=== PATIENT | male | born 1985 ===

== ENCOUNTER 2016-08-28 19:41 | Emergency (ER) | payer OTHER ==
[2016-08-28 19:44] VITALS: BMI 26.1
[2016-08-28 19:46] VITALS: BP 129/86; PULSE 80; RESP 19; TEMP 98.6; O2SAT 99
[2016-08-28] MEDS ORDERED: Amoxicillin-Clav 875-125 mg Tab PO STA (19:57)
[2016-08-28] MEDS ORDERED: TDAP Vaccine 0.5 mL Syr IM ONE (19:58)
--- NOTE | 2016-08-28 20:01 | ED PDOC ---
Arrival/HPI - General Chief Complaint: Bite Time Seen by Provider: 08/28/16 19:57 Historian: Patient - History of Present Illness Narrative History of Present Illness (Text): 08/28/16 19:58 31 y/o male, no significant pmh, nkda, last tetanus doesn't remember, c/o lt. hunt dog bite wound x 2 hours. Pt. stated that the dog bite him while he try to prevent the dog to come in, dog has all the immunization up to date as per patient including rabies, no numbness or tingling, no limping, bleeding resolved , no headache or night sweat, no other medical or psychological complaints. Past Medical History - Provider Review Nursing Documentation Reviewed: Yes - Infectious Disease Hx of Infectious Diseases: None - Past Medical History Past Medical History: No Previous - Psychiatric Hx Depression: No Hx Emotional Abuse: No Hx Physical Abuse: No Hx Substance Use: No - Past Surgical History Past Surgical History: No Previous - Anesthesia Hx Anesthesia: No - Suicidal Assessment Feels Threatened In Home Enviroment: No Family/Social History - Physician Review Nursing Documentation Reviewed: Yes Family/Social History: Unknown Family HX Smoking Status: Never Smoked Hx Alcohol Use: Yes Hx Substance Use: No Hx Substance Use Treatment: No Allergies/Home Meds Allergies/Adverse Reactions: Allergies No Known Allergies Allergy (Verified 08/28/16 19:44) Review of Systems - Review of Systems Constitutional: absent: Fatigue, Fevers Eyes: absent: Vision Changes ENT: absent: Hearing Changes Respiratory: absent: Cough, Sputum Cardiovascular: absent: Chest Pain Gastrointestinal: absent: Abdominal Pain, Diarrhea, Nausea, Vomiting Skin: Other (bite wound). absent: Rash, Pruritis, Skin Lesions, Laceration, Abscess, Ulcer, Cellulitis Neurological: absent: Headache, Dizziness, Focal Weakness, Gait Changes, Speech Changes, Facial Droop, Disequilibrium, Seizure Physical Exam Vital Signs Reviewed: Yes Vital Signs Temp Pulse Resp BP Pulse Ox 08/28/16 19:46 98.6 F 80 19 129/86 99 Temperature: Afebrile Blood Pressure: Normal Pulse: Regular Respiratory Rate: Normal Appearance: Positive for: Well-Appearing, Non-Toxic, Comfortable Pain Distress: Moderate Mental Status: Positive for: Alert and Oriented X 3 - Systems Exam Head: Present: Atraumatic, Normocephalic Pupils: Present: PERRL Extroacular Muscles: Present: EOMI Conjunctiva: Present: Normal Mouth: Present: Moist Mucous Membranes Neck: Present: Normal Range of Motion Respiratory/Chest: Present: Clear to Auscultation, Good Air Exchange. No: Respiratory Distress, Accessory Muscle Use Cardiovascular: Present: Regular Rate and Rhythm, Normal S1, S2. No: Murmurs Abdomen: Present: Normal Bowel Sounds. No: Tenderness, Distention, Peritoneal Signs Back: Present: Normal Inspection Upper Extremity: Present: Normal Inspection. No: Cyanosis, Edema Lower Extremity: Present: Normal Inspection, Other (Lt. tibia/fibula: visible approx. 1cm superficial bite wound with no active bleeding on the anterior proximal 1/3 hunt, no bony tenderness, FROM without limitation, sensation intact , motor 5/5, +DPPT pulses, capillary refill< 2 seconds, neurovascular intact. ) . No: Edema Neurological: Present: GCS=15, CN II-XII Intact, Speech Normal Skin: Present: Warm, Dry, Normal Color. No: Rashes Psychiatric: Present: Alert, Oriented x 3, Normal Insight, Normal Concentration Medical Decision Making ED Course and Treatment: 08/28/16 20:03 -augmentin, motrin -xray -wound irrigate with normal saline 500cc, clean with betadine, bacitracin and gauze dressing. -I advised the ENGINEERING DESIGN SUPERVISOR Baylee to fill out the dog bite form. 08/28/16 21:09 -xray show no fracture or dislocation but there is small round foreign body on the distal 1/3 where the bite wound is on the proximal 1/3 region which are not correlated, I showed the patient and advised outpatient follow up with his own pmd. -Discharge home with augmentin, motrin, bacitracin ointment, crutches, weight bearing as tolerated, ice compression, follow up with your own pmd within 2 days , return to the ER for any new or worsening signs or symptoms. - RAD Interpretation Radiology Orders: 08/28/16 19:57 TIBIA FIBULA LEFT [RAD] Stat soft tissue injury. no evidence of foreign body Indigo Vat Tender Cloth: Radiologist - Medication Orders Current Medication Orders: Discontinued Medications Amoxicillin/Clavulanate Potassium (Augmentin 875 Mg-125 Mg Tab) 1 tab PO STAT STA PRN Reason: Protocol Stop: 08/28/16 19:58 Last Admin: 08/28/16 20:14 Dose: 1 tab Ibuprofen (Motrin Tab) 600 mg PO STAT STA Stop: 08/28/16 19:58 Last Admin: 08/28/16 20:14 Dose: 600 mg Tetanus/Reduced Diphtheria/Acell Pertussis (Boostrix Vaccine Inj) 0.5 ml IM .ONCE ONE Stop: 08/28/16 19:59 Last Admin: 08/28/16 20:14 Dose: 0.5 ml - PA / TOOLROOM HELPER / Resident Statement MD/DO has reviewed & agrees with the documentation as recorded. Disposition/Present on Arrival - Present on Arrival Any Indicators Present on Arrival: No History of DVT/PE: No History of Uncontrolled Diabetes: No Urinary Catheter: No History of Decub. Ulcer: No History Surgical Site Infection Following: None - Disposition Have Diagnosis and Disposition been Completed?: Yes Diagnosis: Dog bite of lower leg Disposition: HOME/ ROUTINE Disposition Time: 20:05 Patient Plan: Discharge Condition: GOOD Additional Instructions: Discharge home with augmentin, motrin, bacitracin ointment, crutches, weight bearing as tolerated, ice compression, follow up with your own pmd within 2 days , return to the ER for any new or worsening signs or symptoms. Prescriptions: Amoxicillin/Clavulanate [Augmentin 875 MG-125 MG] 1 tab PO BID #20 tab Bacitracin Ointment [Bacitracin] 1 appful TOP BID #15 g Ibuprofen [Motrin] 600 mg PO QID PRN #24 tab PRN Reason: Other Referrals: PCP,NO [Primary Care Provider] - Follow up with primary Kevin Hardwick MD [Staff Provider] - Follow up with primary [facility] [place] - Follow up with primary Forms: WORK NOTE
--- NOTE | 2016-08-29 08:18 | RAD ---
PROCEDURE: Radiographs of the left tibia and fibula. HISTORY: lt. hunt dog bite COMPARISON: None available. TECHNIQUE: Frontal and lateral views obtained. FINDINGS: BONES: No fracture or destructive lesion. JOINT SPACES: Unremarkable. OTHER FINDINGS: There is soft tissue swelling. There is no foreign body IMPRESSION: Soft tissue swelling. No evidence of foreign body
== END 2016-08-28 21:28 | disposition home or self-care (01) ==
LOC: ED 19:41
DX: S80.872A Other superficial bite, left lower leg, initial encounter (principal); W54.0XXA Bitten by dog, initial encounter; Z23 Encounter for immunization

== ENCOUNTER 2016-11-14 14:12 | Emergency (ER) | payer OTHER ==
[2016-11-14 15:09] VITALS: BMI 26.4
[2016-11-14 15:13] VITALS: TEMP 99.4
--- NOTE | 2016-11-14 17:12 | ED PDOC ---
Arrival/HPI - General Chief Complaint: Abnormal Skin Integrity Time Seen by Provider: 11/14/16 15:43 Historian: Patient, [employer] (Adela Johnson) - History of Present Illness Narrative History of Present Illness (Text): 11/14/16 16:40 Tobin Bower is a 31 year old male, who presents to the emergency department complaining of a lesion on his penis. He stated that last week while being in the pool he developed a burning sensation and it continued after he showered. He noticed then a lesion on his penis. Patient engages in homosexual anal intercourse. Patient denies having chest pain, shortness of breath, headache, fever, chills, cough, nausea, vomiting, diarrhea, abdominal pain, dizziness or other complaints. Time/Duration: 24 hours Symptom Onset: Sudden Symptom Course: Unchanged Quality: Burning Activities at Onset: Light Modifying Factors (Text): None Associated Symptoms (Text): None Past Medical History - Provider Review Nursing Documentation Reviewed: Yes - Infectious Disease Hx of Infectious Diseases: None - Past Medical History Past Medical History: No Previous - Psychiatric Hx Substance Use: No - Past Surgical History Past Surgical History: No Previous - Anesthesia Hx Anesthesia: No - Suicidal Assessment Feels Threatened In Home Enviroment: No Family/Social History - Physician Review Nursing Documentation Reviewed: Yes Family/Social History: Unknown Family HX Smoking Status: Never Smoked Hx Alcohol Use: Yes Frequency of alcohol use: Socially Hx Substance Use: No Hx Substance Use Treatment: No Allergies/Home Meds Allergies/Adverse Reactions: Allergies No Known Allergies Allergy (Verified 08/28/16 19:44) Review of Systems - Review of Systems Constitutional: absent: Fevers Eyes: absent: Vision Changes Respiratory: absent: SOB, Cough Cardiovascular: absent: Chest Pain Gastrointestinal: absent: Abdominal Pain, Diarrhea, Nausea, Vomiting Genitourinary Male: Other (burning sensation in penis). absent: Dysuria Physical Exam Vital Signs Reviewed: Yes Vital Signs Temp Pulse Resp BP Pulse Ox 11/14/16 17:27 74 18 119/74 98 11/14/16 16:06 79 18 117/75 97 11/14/16 14:12 99.4 F 84 16 115/77 97 Temperature: Afebrile Blood Pressure: Normal Pulse: Regular Respiratory Rate: Normal Appearance: Positive for: Well-Appearing, Non-Toxic, Comfortable Pain Distress: None Mental Status: Positive for: Alert and Oriented X 3 - Systems Exam Head: Present: Atraumatic, Normocephalic Neck: Present: Normal Range of Motion Abdomen: Present: Normal Bowel Sounds. No: Tenderness, Distention, Peritoneal Signs Genitourinary Male: Present: Lesions (There is an isolated ulcerated lesion near the prepuce on the penis) Upper Extremity: Present: Normal Inspection. No: Cyanosis, Edema Lower Extremity: Present: Normal Inspection. No: Edema Neurological: Present: GCS=15, CN II-XII Intact, Speech Normal Skin: Present: Warm, Dry, Normal Color. No: Rashes Psychiatric: Present: Alert, Oriented x 3, Normal Insight, Normal Concentration Medical Decision Making ED Course and Treatment: 11/14/16 16:40 Impression: 31 year old male with lesion on penis. Differential Diagnosis included but are not limited to: syphilis vs. herpes Plan: -- Labs -- Famvir -- Reassess and disposition 11/14/16 20:36 Patient with isolated painless penile lesion with homosexual sex as risk factor for HIV/syphilis. Rapis HIV is nonreactive in the ED. HSV labs and RPR For syphilis sent. Patient told to call back the ED in a few days for results. Will give script for famvir and have him f/u in the medical clinic. - Lab Interpretations Lab Results: Lab Results 11/14/16 18:50: HIV-1 Ab Rapid Screen Non reactive I have reviewed the lab results: Yes - Medication Orders Current Medication Orders: Discontinued Medications Famciclovir (Famvir) 250 mg PO ONCE STA Stop: 11/14/16 16:41 Last Admin: 11/14/16 17:21 Dose: 250 mg - PA / SOFTWARE DEVELOPER CONSULTANT / Resident Statement / has reviewed & agrees with the documentation as recorded. / has examined the patient and agrees with the treatment plan. - Scribe Statement The provider has reviewed the documentation as recorded by the Scribe 11/14/2016 Adela Johnson Provider Scribe Attestation: All medical record entries made by the Scribe were at my direction and personally dictated by me. I have reviewed the chart and agree that the record accurately reflects my personal performance of the history, physical exam, medical decision making, and the department course for this patient. I have also personally directed, reviewed, and agree with the discharge instructions and disposition. Disposition/Present on Arrival - Present on Arrival Any Indicators Present on Arrival: No History of DVT/PE: No History of Uncontrolled Diabetes: No Urinary Catheter: No History of Decub. Ulcer: No History Surgical Site Infection Following: None - Disposition Have Diagnosis and Disposition been Completed?: Yes Diagnosis: Penile lesion Disposition: HOME/ ROUTINE Disposition Time: 20:35 Patient Plan: Discharge Condition: GOOD Additional Instructions: Apply bacitracin twice daily to lesion. Take the medication as prescribed. Follow up in the medical clinic. You may call back the emergency department at [phone] in several days for results. Return to the emergency department if any new concerning symptoms. Prescriptions: Famciclovir [Famvir] 1 tab PO TID #21 tab Referrals: [facility] [place]Outside] - Follow up with primary
[2016-11-14 21:17] LABS: RAPID PLASMA REAGIN REACTIVE (NONREACTIVE)
[2016-11-14 21:18] LABS: RPR TITER 1:16 (NONREACTIVE)
[2016-11-14 21:36] VITALS: BP 118/72; PULSE 75; RESP 16; O2SAT 99
[2016-11-17 20:32] LABS: HERPESVIRUS 8 IgG AB IFA <1:20
== END 2016-11-14 20:45 | disposition home or self-care (01) ==
LOC: ED 14:12
DX: N48.9 Disorder of penis, unspecified (principal)